=== PATIENT | male | born 1955 | race Caucasian/White ===

== ENCOUNTER 2017-12-13 09:29 | Emergency (ER) | payer OTHER ==
[2017-12-13] MEDS ORDERED: Ondansetron 4 MG Tab.DIS PO ONE (09:44)
--- NOTE | 2017-12-13 09:46 | EDM.PDOC ---
ED HPI GENERAL MEDICAL PROBLEM - General Chief Complaint: Head Injury Stated Complaint: [facility] Time Seen by Provider: 12/13/17 09:41 Source of Information: Reports: Patient History Limitations: Reports: No Limitations - History of Present Illness INITIAL COMMENTS - FREE TEXT/NARRATIVE: 62-year-old male presents to the ED per ambulance. History suggests that he works at [employer] and was just walking into the shop when he slipped on the ice. States his feet went out from underneath him and he landed hard on his back striking the back of his head hard on the pavement. It appears that he was transiently dazed but did not lose consciousness. States when he got up into the building he seemed to be a little bit confused about which door went where i.e. mildly disoriented for a period of time. At this time he has a mild occipital headache with minimal nausea. He is alert oriented and answers all questions quite appropriately. Moore Coma Scale is 15 out of 15. His only other complaint is pain in his left elbow where he struck the pavement when he fell. He states he from below the waist he is fine he can walk normally. Has no pain in his cervical spine. He has not vomited. Did not spit up any blood or injuring his tongue. No dental injuries. [facility] since he' s a . However the care provider there felt he would be better served by coming to the ED and they summoned the ambulance. Onset: Today Onset Date: 12/13/17 Onset Time: 07:55 Duration: Minutes: Location: Reports: Head, Upper Extremity, Left (Left olecranon process of elbow. ) Quality: Reports: Ache Severity: Moderate Improves with: Reports: None Worsens with: Reports: None Context: Reports: Trauma (Slipped and fell on ice while walking into the workplace this morning.) Associated Symptoms: Reports: Confusion (Transient confusion after). 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: Other (see below) (None.) Headache Pain Score (Numeric/FACES): 8 - Related Data Allergies Allergy/AdvReac Type Severity Reaction Status Date / Time No Known Allergies Allergy Verified 12/13/17 09:35 Home Meds: Home Meds Meloxicam 15 mg PO DAILY 12/13/17 [History] Tadalafil [Adcirca] 20 mg PO DAILY PRN 12/13/17 [History] amLODIPine Besylate/Benazepril [Amlodipine-Benazepril 10-20 MG] 1 tab PO DAILY 12/13/17 [History] Past Medical History Cardiovascular History: Reports: Hypertension Musculoskeletal History: Reports: Back Pain, Chronic, Osteoarthritis Social & Family History - Living Situation & Occupation Living situation: Reports: Single Occupation: Employed ED ROS GENERAL - Review of Systems Review Of Systems: See Below Constitutional: Reports: No Symptoms HEENT: Reports: No Symptoms Respiratory: Reports: No Symptoms Cardiovascular: Reports: Blood Pressure Problem (Currently on antihypertensive medication.) Endocrine: Reports: No Symptoms GI/Abdominal: Reports: No Symptoms Musculoskeletal: Reports: Joint Pain Skin: Reports: No Symptoms Neurological: Reports: No Symptoms Psychiatric: Reports: No Symptoms Hematologic/Lymphatic: Reports: No Symptoms Immunologic: Reports: No Symptoms ED EXAM, HEAD INJURY - Physical Exam Exam: See Below Exam Limited By: No Limitations General Appearance: Alert, WD/WN, No Apparent Distress Head: Scalp Tenderness (Over the mid occipital scalp). No: Active Bleeding ( slightly more to the left than the right side.), Razo's Sign, Flap, Facial Abrasions, Facial Ecchymosis, Facial Lacerations, Facial Swelling, Sinus Tenderness, Facial Tenderness Nexus Criteria: No: Posterior, Midline Cervical Tenderness, Altered Level of Consciousness, Focal Neurological Deficit, Painful Distraction Injuries Eyes: Bilateral Eye: Normal Inspection, PERRL Ears: Normal TMs Throat/Mouth: Normal Inspection, Normal Lips, Normal Teeth, Normal Oropharynx, Other (No intraoral bleeding or tongue injury.) Neck: Non-Tender, Full Range of Motion, Normal Alignment, Normal Inspection Respiratory: No Respiratory Distress, Lungs Clear, Normal Breath Sounds, No Accessory Muscle Use, Chest Non-Tender Cardiovascular: Normal Peripheral Pulses, Regular Rate, Rhythm, No Edema, No Gallop, No Murmur GI/Abdominal Exam: Normal Bowel Sounds, Soft, Non-Tender, No Organomegaly Extremities: Other (Patient has some tenderness over the left olecranon process. But he has full pronation supination at the elbow. Minimal abrasion over the olecranon process appreciated. 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 nml As Tested, No Motor/Sensory Deficits, Alert, Normal Mood/Affect, Oriented x 3 Skin: Normal Color, Warm/Dry - Miya Coma Score Best Eye Response (Moore): (4) Open Spontaneously Best Verbal Response (Moore): (5) Oriented Best Motor Response (Moore): (6) Obeys Commands Miya Total: 15 Course - Vital Signs Last Recorded V/S: Last Vital Signs Temp 35.9 C 12/13/17 09:31 Pulse 74 12/13/17 09:31 Resp 14 12/13/17 09:31 BP 167/82 H 12/13/17 09:31 Pulse Ox 100 12/13/17 09:31 - Orders/Labs/Meds Meds: Medications Discontinued Medications Generic Name Dose Route Start Last Admin Trade Name Yareli PRN Reason Stop Dose Admin Ondansetron HCl 4 mg 12/13/17 09:44 12/13/17 09:49 Zofran Odt PO 12/13/17 09:45 4 mg ONETIME ONE Administration - Radiology Interpretation Free Text/Narrative:: 62-year-old male presents the ED per ambulance after slipping and falling while walking into his workplace this morning. Slipped outside the building on the ice. States his feet went out from underneath him and he landed back and head first. Contusion of the occipital scalp on the pavement. Transient confusion and disorientation which appears to have cleared. Examination reveals mild scalp tenderness in the midoccipital area. Neck is free of any pain and he has full unopposed range of motion. Only other injuries to his left olecranon process of his elbow with mild contusion superficial abrasion. No other injuries were identified on exam. Plan CT head will be done. X-ray left elbow. At this time he states he does not need medication for headache . He is mildly queasy or nauseated. Will give him Zofran 4 mg sublingual. - Re-Assessments/Exams Free Text/Narrative Re-Assessment/Exam: 12/13/17 11:00: CT head is within normal limits. No fractures are identified no intracranial bleeding or mass effect identified. Similarly x-rays of the left elbow show the olecranon process to be intact without any chip fractures. Therefore the patient will be discharged home. He may well of suffered a very minimal cerebral concussion. On reexamination he is alert oriented and requesting food. This is a good sign suggesting that he has suffered very minimal closed head injury. He will be left off work today but tentatively May return to work tomorrow per normal. Departure - Departure Time of Disposition: 12:00 Disposition: Home, Self-Care 01 Condition: Fair Clinical Impression: Closed head injury Qualifiers: Encounter type: initial encounter Qualified Code(s): S09.90XA - Unspecified injury of head, initial encounter Contusion of left elbow Qualifiers: Encounter type: initial encounter Qualified Code(s): S50.02XA - Contusion of left elbow, initial encounter - Discharge Information Instructions: Head Injury, Adult, Elbow Contusion, [id number] Referrals: PCP,Not In Area [Primary Care Provider] - Forms: ED Department Discharge, ED Return to Work/School Form Additional Instructions: Evaluation in the emergency room today in regards to slip and fall on the ice outside of workplace this morning. Didn't direct blow to your upper back and is striking the back of her head on the pavement. Transient confusion and disorientation occurred suggesting possibility of a mild concussion. Neurological function in the ED is completely normal. CT of the head was carried out to make sure that there was no skull fractures or intracranial bleeding and none was found. CT scan of the brain is normal. You also contused her left elbow over the olecranon process. X-rays do not reveal any chip fractures off of the bone. Expect some swelling to occur over the olecranon bursa area of the elbow over the next week or 10 days. Follow-up with if needed. Is okay to take Tylenol or Motrin for headache relief. Expect increased cervical neck pain over the next couple of days due to whiplash type injuries suffered when you fell this morning. At some diffuse low back pain. Suggest off work today and tentatively may return tomorrow if you're feeling well enough.
--- NOTE | 2017-12-13 10:04 | CT ---
Head CT Technique: Multiple axial sections through the brain were obtained. Intravenous contrast was not utilized. Comparison: No previous intracranial imaging. Findings: Soft tissue swelling is seen within the posterior left scalp. Ventricles along with basal cisterns and sulci over the convexities are within normal limits for the patient's age. No abnormal parenchymal densities are seen. No evidence of intracranial hemorrhage. No midline shift or mass effect is seen. Minimal diminished areas of decreased density are seen within the periventricular white matter. Bone window settings were reviewed which shows no acute calvarial abnormality. Minimal mucosal thickening is seen within portions of the right mastoid sinus. Mild mucosal thickening is seen within the left sphenoid sinus. Impression: 1. Minimal senescent change. 2. Mild soft tissue swelling within the posterior scalp. 3. Sinus findings which are most likely pre-existing and incidental. 4. No acute intracranial abnormality is seen. No acute skull fracture is seen. Diagnostic code #2
--- NOTE | 2017-12-13 10:26 | CR ---
Left elbow: Four views of the left elbow were obtained. Comparison: No previous study. No joint effusion is seen. Calcifications which appear well-corticated are seen off the medial and lateral epicondylar regions which appear old and are felt compatible with previous calcific tendinitis. No acute fracture or other bony abnormality is seen. Impression: 1. Well-corticated calcifications off both epicondyles. These are felt to be incidental. 2. Nothing acute is appreciated on left elbow study. Diagnostic code #2
== END 2017-12-13 12:11 | disposition home or self-care (01) ==
LOC: JD.ED 09:29
DX: S09.90XA Unspecified injury of head, initial encounter (principal); S50.02XA Contusion of left elbow, initial encounter; I10 Essential (primary) hypertension; W00.0XXA Fall on same level due to ice and snow, initial encounter; Y99.0 Civilian activity done for income or pay; Z79.899 Other long term (current) drug therapy
CPT/HCPCS: 70450; 73080; 99285; A9270; 99283

== ENCOUNTER 2018-03-19 15:04 | Emergency (ER) | payer OTHER ==
[2018-03-19] MEDS ORDERED: Sodium Chloride 0.9% 10 ML Syringe FLUSH PRN (15:57)
[2018-03-19] MEDS ORDERED: HYDROmorphone 0.5 MG/0.5 ML SYRINGE IVPUSH ONE ×2 (15:58→17:29)
[2018-03-19] MEDS ORDERED: Sodium Chloride 0.9% 1,000 ML IV ONE (15:58)
--- NOTE | 2018-03-19 16:19 | EDM.PDOC ---
ED HPI GENERAL MEDICAL PROBLEM - General Chief Complaint: Abdominal Pain Stated Complaint: ABDOMINAL/BACK PAIN Time Seen by Provider: 03/19/18 15:48 Source of Information: Reports: Patient History Limitations: Reports: No Limitations - History of Present Illness INITIAL COMMENTS - FREE TEXT/NARRATIVE: 62-year-old male presents for evaluation and treatment of left-sided mid back, left flank and left lower quadrant abdominal pain. He states that the pain also radiates into his groin. He reports that the pain came on gradually today and is a constant, aching pain. He denies any fevers, chills, nausea, vomiting or diarrhea. He states he occasionally has constipation, last bowel movement was today. No dysuria or hematuria. No swelling or pain to the testicle. Patient has a past surgical history of a laparoscopic cholecystectomy. Patient has a history of kidney stone. States this and several decades since he' s had a kidney stone. He never has never had a colonoscopy. primary care provider resides in [place]. Left Abdomen Pain Score (Numeric/FACES): 8 - Related Data Allergies Allergy/AdvReac Type Severity Reaction Status Date / Time No Known Allergies Allergy Verified 03/19/18 15:18 Home Meds: Home Meds Meloxicam 15 mg PO DAILY 12/13/17 [History] Acetaminophen/oxyCODONE [Percocet 325-5 MG] 1 each PO Q4HR PRN #20 tab 03/19/18 [Rx] Lisinopril [Prinivil] 10 mg PO DAILY 03/19/18 [History] Tamsulosin HCl [Flomax] 0.4 mg PO DAILY #10 cap.er.24h 03/19/18 [Rx] Past Medical History Cardiovascular History: Reports: Hypertension Musculoskeletal History: Reports: Back Pain, Chronic, Osteoarthritis Social & Family History - Family History Respiratory: Reports: COPD - Tobacco Use Smoking Status *Q: Former Smoker Used Tobacco, but Quit: Yes Month/Year Tobacco Last Used: 15 - Caffeine Use Caffeine Use: Reports: Coffee, Soda - Living Situation & Occupation Living situation: Reports: Single Occupation: Employed ED ROS GENERAL - Review of Systems Review Of Systems: See Below Constitutional: Denies: Fever, Chills GI/Abdominal: Reports: Abdominal Pain (LLQ), Constipation. Denies: Bloody Stool , Diarrhea, Nausea, Vomiting : Reports: Flank Pain (left). Denies: Dysuria, Hematuria Musculoskeletal: Reports: Back Pain (left mid to low back) ED EXAM, RENAL/ - Physical Exam Exam: See Below Exam Limited By: No Limitations General Appearance: Alert, WD/WN, No Apparent Distress, Obese Eye Exam: Bilateral Eye: Normal Inspection Ears: Normal External Exam Nose: Normal Inspection Throat/Mouth: Normal Inspection, Normal Voice, No Airway Compromise Respiratory/Chest: No Respiratory Distress, Lungs Clear, Respiratory Distress Cardiovascular: Normal Peripheral Pulses, Regular Rate, Rhythm, No Murmur GI/Abdominal: Normal Bowel Sounds, Soft, Tender (LLQ minor). No: Guarding, Rebound Neurological: Alert, Oriented, Normal Cognition Psychiatric: Normal Affect, Normal Mood Skin Exam: Warm, Dry, Normal Color Course - Vital Signs Last Recorded V/S: Last Vital Signs Temp 98.8 F 03/19/18 17:30 Pulse 88 03/19/18 17:45 Resp 16 03/19/18 17:45 BP 176/87 H 03/19/18 17:45 Pulse Ox 96 03/19/18 17:45 - Orders/Labs/Meds Orders: Active Orders 24 hr Category Date Time Status Peripheral IV Care [RC] . DIRECTED Care 03/19/18 15:58 Active Abdomen Pelvis wo Cont [CT] Stat Exams 03/19/18 15:51 Taken UA W/MICROSCOPIC [URIN] Stat Lab 03/19/18 16:55 Ordered Peripheral IV Insertion Adult [OM.PC] Routine Oth 03/19/18 15:57 Ordered Labs: Laboratory Tests 03/19/18 03/19/18 03/19/18 Range/Units 16:10 16:10 16:55 WBC 7.61 (4.23-9.07) K/mm3 RBC 4.59 L (4.63-6.08) M/mm3 Hgb 14.1 (13.7-17.5) gm/L Hct 41.0 (40.1-51.0) % MCV 89.3 (79.0-92.2) fl MCH 30.7 (25.7-32.2) pg MCHC 34.4 (32.2-35.5) g/dl RDW Std Deviation 43.0 (35.1-43.9) fL Plt Count 234 (163-337) K/mm3 MPV 10.0 (9.4-12.3) fl Neutrophils % (Manual) 73 H (40-60) % Band Neutrophils % 0 (0-10) % Lymphocytes % (Manual) 15 L (20-40) % Atypical Lymphs % 0 % Monocytes % (Manual) 7 (2-10) % Eosinophils % (Manual) 2 (0.8-7.0) % Basophils % (Manual) 3 H (0.2-1.2) Platelet Estimate Adequate Plt Morphology Comment Normal RBC Morph Comment Normal Sodium 143 (136-145) mEq/L Potassium 3.4 L (3.5-5.1) mEq/L Chloride 106 (98-107) mEq/L Carbon Dioxide 31 (21-32) mEq/L Anion Gap 9.4 (5-15) BUN 16 (7-18) mg/dL Creatinine 1.1 (0.7-1.3) mg/dL Est Cr Clr Drug Dosing 74.46 mL/min Estimated GFR (MDRD) > 60 (>60) mL/min BUN/Creatinine Ratio 14.5 (14-18) Glucose 105 (80-115) mg/dL Calcium 8.3 L (8.5-10.1) mg/dL Total Bilirubin 0.4 (0.2-1.0) mg/dL AST 19 (15-37) U/L ALT 34 (16-63) U/L Alkaline Phosphatase 138 H (46-116) U/L C-Reactive Protein < 0.2 (<1.0) mg/dL Total Protein 7.0 (6.4-8.2) g/dl Albumin 3.6 (3.4-5.0) g/dl Globulin 3.4 gm/dL Albumin/Globulin Ratio 1.1 (1-2) Urine Color Light yellow (Yellow) Urine Appearance Cloudy H (Clear) Urine pH 8.0 (5.0-8.0) Ur Specific [place] 1.020 (1.005-1.030) Urine Protein Trace H (Negative) Urine Glucose (UA) Negative (Negative) Urine Ketones Negative (Negative) Urine Occult Blood 3+ H (Negative) Urine Nitrite Negative (Negative) Urine Bilirubin Negative (Negative) Urine Urobilinogen 0.2 (0.2-1.0) Ur Leukocyte Esterase Negative (Negative) Urine RBC >100 H (0-5) /hpf Urine WBC 0-5 (0-5) /hpf Ur Epithelial Cells Not seen (0-5) /hpf Urine Bacteria Few (FEW) /hpf Urine Mucus Not seen (FEW) /hpf Meds: Medications Discontinued Medications Generic Name Dose Route Start Last Admin Trade Name Kennethq PRN Reason Stop Dose Admin Hydromorphone HCl 0.5 mg 03/19/18 15:58 03/19/18 16:13 Dilaudid IVPUSH 03/19/18 15:59 0.5 mg ONETIME ONE Administration Hydromorphone HCl 0.5 mg 03/19/18 17:29 03/19/18 17:38 Dilaudid IVPUSH 03/19/18 17:30 0.5 mg ONETIME ONE Administration Sodium Chloride 1,000 mls @ 999 mls/hr 03/19/18 15:58 03/19/18 16:15 Normal Saline IV 03/19/18 16:58 999 mls/hr ONETIME ONE Administration Ketorolac Tromethamine 30 mg 03/19/18 16:49 03/19/18 17:08 Toradol IVPUSH 03/19/18 16:50 30 mg ONETIME ONE Administration Sodium Chloride 10 ml 03/19/18 15:57 03/19/18 16:10 Saline Flush FLUSH 10 ml ASDIRECTED PRN Administration Keep Vein Open - Radiology Interpretation Free Text/Narrative:: CT of the abdomen and pelvis without contrast impression per vrad: multiple subcentimeter hypoattenuating foci in the liver not characterized on this unenhanced scan. Further evaluation with ultrasound andpost contrast imaging suggested. 2. moderate hiatal hernia.. 3. Therehas been a cholecystectomy. 4. Other expansion of thecontour of the distal gastric antrum associated with mixed soft tissue and fatty elements measuring 4.2 x 5.3 cm. Findings may be related to ingested fat. Intragastric partailly fatty mass not excluded. Correlationwith upperGI series or endoscopy suggested. 5. 2 x 6 mm obstructing calcus in the proximal left ureter associated with moderate proximal hydroureteronephrosis with minimal periureteral strandign. No urinoma demonstrated. - Re-Assessments/Exams Free Text/Narrative Re-Assessment/Exam: 03/19/18 17:27 I reviewed the labs and imaging with the patient. His acute problem appears to be a kidney stone. I'll start him on Flomax and Percocet for pain. Possible that he may pass this on his own, however, he was educated that he may require urology consult to pass the stone. Regarding the other 2 incidental findings in his stomach and liver; he is encouraged to find a primary care provider [facility] to follow up with these. Recommendations given. I will send home some Percocet and some Flomax. He is encouraged to drink fluids. Discharge instructions as documented. Departure - Departure Time of Disposition: 17:30 Disposition: Home, Self-Care 01 Condition: Fair Clinical Impression: Nephrolithiasis - Discharge Information Prescriptions: Acetaminophen/oxyCODONE [Percocet 325-5 MG] 1 each PO Q4HR PRN #20 tab PRN Reason: Pain Tamsulosin HCl [Flomax] 0.4 mg PO DAILY #10 cap.er.24h Instructions: Kidney Stones, [id number] Referrals: PCP,Not In Area [Primary Care Provider] - Nadege Moreno MD [Physician] - Forms: ED Department Discharge Additional Instructions: Follow-up with primary care within 1 week for recheck of your symptoms. If you do not pass the stone within one week, you may need to see urology. Also recommend follow-up as he may require a ultrasound of the liver. The CT also identified an area near stomach which recommended further investigation possibly an upper endoscopy or upper GI series. Please discuss this further with primary care. Recommend Dr. Moreno at the [facility], call [phone] to schedule with her. You were given medication the other can affect her ability to drive and operate machinery. Do not drive or operate machinery within 12 hours of taking prescription narcotic pain medication. Flomax 1 Daily. Take this until stone passes. Make sure drinking plenty of fluids. Percocet 1-2 tabs every 4-6 hours as needed for severe pain. Percocet as habit- forming, take as few of these as needed to control your pain. Please return to the ER if your symptoms change or worsen.
[2018-03-19] MEDS ORDERED: Ketorolac 30 MG/ML SDV IVPUSH ONE (16:49)
--- NOTE | 2018-03-25 08:20 | CT ---
CT abdomen and pelvis Technique: Multiple axial sections were obtained from above the kidneys inferiorly through the pubic symphysis. Intravenous and oral contrast not utilized. Study has been performed as a ureteral stone protocol. Comparison: No prior abdominal imaging. Findings: Proximal left ureter is mildly dilated. This finding is caused by an obstructing proximal left ureter measuring about 6 mm in size. No other abnormal calcifications are seen along the course of the ureters. Several minimal calcifications are seen within both kidneys most likely representing minimal nonobstructing calculi. Moderately large hiatal hernia is seen. Visualized lung bases show nothing acute. Several small low density findings are seen within the liver with largest measuring approximately 1 cm. These are most likely due to minimal cysts. Spleen appears within normal limits. Adrenal glands show no nodule. Pancreas appears within normal limits. Aorta shows atherosclerotic change which continues in the iliac vessels without aneurysm. No retroperitoneal adenopathy or mesenteric abnormalities are seen. Appendix is seen which is normal. No pelvic mass or adenopathy is seen. Fat-containing inguinal hernias are incidentally noted. No free fluid or inflammatory change is seen. Surgical clips are noted from prior cholecystectomy. Impression: 1. Moderately large hiatal hernia. 2. Small low density lesions within the liver most likely representing minimal cysts. 3. 6 mm obstructing proximal left ureteral calculus. Minimal calcifications within the kidneys likely representing minimal nonobstructing calculi. Diagnostic code #3 I agree with preliminary report from [facility], other findings mentioned on preliminary report are felt to be incidental, finalized at 03/19/18, 5:45 PM Central Time
== END 2018-03-19 17:45 | disposition home or self-care (01) ==
LOC: JD.ED 15:04
DX: N20.0 Calculus of kidney (principal); I10 Essential (primary) hypertension; Z79.899 Other long term (current) drug therapy; Z87.891 Personal history of nicotine dependence
CPT/HCPCS: 36415; 74176; 80053; 81001; 85007; 85027; 86140; 96361; 96374; 96375; 96376; 99284; J1170; J1885; J7040; J7050